=== PATIENT | female | born 1985 | race African-American/Black ===

== ENCOUNTER 2016-12-27 06:54 | Inpatient (IN) ==
--- NOTE | 2016-12-27 07:12 | PROVIDER DOCUMENTATION ---
HPI-Respiratory General - General Source: patient - History of Present Illness-Resp Quality of Pain: reports: aching Severity in ED: reports: mild Onset/Duration: reports: 2 days ago Timing: reports: still present, getting worse Exposure: reports: unknown cause Cough Quality/Degree: reports: productive cough, blood streaked sputum Current Respiratory Medication Therapy: Initiated other (lasix) Modifying Factors: improves with: coughing Associated Symptoms: reports: cough, fever/chills, flu-like symptoms, nasal congestion, nasal drainage, short of breath, wheezing Similar Symptoms Previously?: No Recently seen or treated by another doctor?: No <Niels Coy - Last Filed: 12/27/16 07:07> <Mone Rousseau - Last Filed: 12/27/16 10:26> - General Chief Complaint: Flu Symptoms Stated Complaint: VOMITING Time Seen by Provider: 12/27/16 07:07 Allergies/Adverse Reactions: Patient Allergies Allergy/AdvReac Type Severity Reaction Status Date / Time No Known Allergies Allergy Verified 05/03/16 03:19 Home Medications: Home Medication List Medication Instructions Recorded Confirmed Last Taken Type Furosemide [Lasix] 40 mg PO DIRECTED 12/27/16 12/27/16 Unknown History - History of Present Illness-Resp Nature of Presenting Problem: 2 day illness fever cough sob wheezes that clear with coughing hx post chf (Niels Coy) Review of Systems - Adult - REVIEW OF SYSTEMS - ADULT Constitutional: reports: chills, fever, night sweats Eyes: denies: discharge, blurred vision, redness Ears, Nose, Mouth & Throat: reports: epistaxis, hoarseness. denies: ear discharge, ear pain, throat pain Respiratory: reports: cough Gastrointestinal: denies: abdominal pain, constipation, diarrhea, vomiting Genitourinary: denies: dysuria, hematuria Musculoskeletal: reports: muscle aches Integumentary: reports: no symptoms reported Neurological: reports: headache/migraines Psychiatric: reports: no symptoms reported Endocrine: reports: no symptoms reported Hematologic/Lymphatic: denies: blood clots, easy bruising, low blood count Allergic/Immunologic: denies: asthma, eczema, hay fever <Niels Coy - Last Filed: 12/27/16 07:07> Past History - Adult - PAST MEDICAL HISTORY-ADULT Review of Records: reports: Nursing Assessment Review, Medications Reviewed, Social history reviewed & non-contributory. Cardiovascular: reports: CHF Respiratory: denies: asthma, COPD Gastrointestinal: reports: denies history Genitourinary: reports: denies history Musculoskeletal: reports: denies history Neurological: reports: denies history Psychiatric: reports: denies history Endocrine/Immune: reports: denies history Other Conditions: reports: denies history - PRIOR SURGERIES/PROCEDURES Surgical/Procedure History: reports: none - IMMUNIZATION STATUS Childhood Immunizations: See Nurse Assessment Flu Vaccine: See Nurse Assessment - FAMILY HISTORY Family History: reviewed, not pertinent - SOCIAL HISTORY Smoking: denies Substance Use: none/never Alcohol Use Frequency: occasionally <Niels Coy - Last Filed: 12/27/16 07:07> Physical Exam-General - PHYSICAL EXAM-ADULT Initial Vital Signs Reviewed: Yes - CONSTITUTIONAL General Appearance: no apparent distress - EYES Eyes: PERRL/EOMI, pink conjunctivae - HEAD, EARS, NOSE, MOUTH & THROAT HENMT: normocephalic/atraumatic, moist mucous membranes, normal ENT inspection, TMs normal, pharynx normal - NECK Neck: supple - RESPIRATORY Respiratory: lungs clear, no respiratory distress - CARDIOVASCULAR Cardiovascular: regular rate, rhythm - GASTROINTESTINAL (ABDOMEN) Abdominal Exam: soft - LYMPHATIC Lymphatic: no adenopathy - MUSCULOSKELETAL Back Exam: normal inspection Extremity: normal range of motion. negative: swelling - SKIN Integumentary: normal color, normal turgor - NEUROLOGIC Neurologic: grossly normal - PSYCHIATRIC Psych/Mental Status: normal mood/affect <Niels Coy - Last Filed: 12/27/16 07:07> Progress <Niels Coy - Last Filed: 12/27/16 07:07> - XRAY 1 XRAY Study: Chest Impression: Abnormal (cmg, pulm edema, and LLL pneumonia per radiologist) - CONSULTS/PCP/HOSPITALIST Notification #1 *Consult/PCP/Hospitalist*: Dr. Carr Time Discussed: 10:21 Reason/Comments: Call back with comp results <Mone Rousseau - Last Filed: 12/27/16 10:26> - PLAN OF CARE/RESULTS Progress/Plan/Lab Results: Vital Signs Temp Pulse Resp BP Pulse Ox 12/27/16 10:21 117 H 20 133/83 95 12/27/16 08:38 112 H 12/27/16 07:00 99.6 F 122 H 18 129/88 100 No Known Allergies Allergy (Verified 05/03/16 03:19) Furosemide [Lasix] 40 mg PO DIRECTED 12/27/16 Laboratory 12/27/16 12/27/16 09:01 07:05 WBC 7.38 RBC 4.27 Hgb 10.6 L Hct 33.6 L MCV 78.7 L MCH 24.8 L MCHC 31.5 L RDW Std Deviation 17.3 H Plt Count 265 MPV 9.6 Immature Gran % (Auto) 0.4 Neut % (Auto) 79.1 H Lymph % (Auto) 12.2 L R[place] % (Auto) 7.7 Eos % (Auto) 0.3 Baso % (Auto) 0.3 Immature Gran # (Auto) 0.03 Neut # (Auto) 5.84 Lymph # (Auto) 0.90 L [place] # (Auto) 0.57 Eos # (Auto) 0.02 Baso # (Auto) 0.02 Influenza A (Rapid) NEGATIVE Influenza B (Rapid) NEGATIVE Orders Category Date Time Status CHEST-2 VIEWS [RAD] Stat Exams 12/27/16 07:16 Draft CBC WITH DIFF [HEME] Stat Lab 12/27/16 09:01 Completed CK PROFILE [SP CHEM] Stat Lab 12/27/16 08:50 Received COMPREHENSIVE METABOLIC PANEL [CHEM] Stat Lab 12/27/16 08:[address] Stat Lab 12/27/16 07:05 Completed PRO B-NATRIURETIC PEPTIDE Stat Lab 12/27/16 08:50 Received TROPONIN T Stat Lab 12/27/16 08:50 Received (Mone Rousseau) Departure <Niels Coy - Last Filed: 12/27/16 07:07> - Departure Time of Disposition Order: 10:25 Certified Medical Emergency: Emergent <Mone Rousseau - Last Filed: 12/27/16 10:26> - Departure DIAGNOSIS: cardiomyopathy Left lower lobe pneumonia Qualifiers: Pneumonia type: due to unspecified organism Qualified Code(s): J18.1 - Lobar pneumonia, unspecified organism Disposition: ADMITTED INPATIENT 09 Condition: Stable Attestation - Scribe Verification/Attestation Scribe:: Mone Rousseau Acting as Scribe for:: Niels Coy Scribe documention review:: This chart was documented by a scribe and accurately reflects the service the provider performed and the decisions made by the provider. <Mone Rousseau - Last Filed: 12/27/16 10:26> Physician Attestation
[2016-12-27 09:02] LABS: MANUAL DIFF NEEDED? NO
[2016-12-27 09:08] LABS: BASO% 0.3 % (0.0-0.8); EOS# 0.02 X1000 (0.0-0.7); EOS% 0.3 % (0.0-10.0); HEMATOCRIT 33.6 % (37.0-47.0); HEMOGLOBIN 10.6 g/dL (12.0-16.0); IMM GRAN# 0.03 X1000 (0.0-0.04); IMM GRAN% 0.4 % (0.0-0.5); LYMPH% 12.2 % (20.5-51.1); MCH 24.8 PG (27-31); MCHC 31.5 g/dL (33-37); MCV 78.7 FL (81-99); MONO# 0.57 X1000 (0.11-0.59); MONO% 7.7 % (1.7-9.3); MPV 9.6 FL (7.4-10.4); NEUT% 79.1 % (42.2-75.2); PLT 265 X1000 (130-400); RBC 4.27 XMIL (4.2-5.4)
--- NOTE | 2016-12-27 10:24 | Diag Imaging Result Document ---
PROCEDURE NAME: CHEST-2 VIEWS - 12/27/2016 TWO VIEWS OF THE CHEST: FINDINGS: The heart size is enlarged. There is interstitial pulmonary edema. There is alveolar opacity present in the left lower lobe, none of which was present on 09/15/2016. IMPRESSION: Pulmonary edema. Left lower lobe pneumonia. Cardiomegaly.
[2016-12-27 11:19] LABS: AGAP 14; ALBUMIN 3.5 g/dL (3.5-5.0); ALKALINE PHOSPHATASE 111 U/L (32-104); BUN 16 mg/dL (8-22); CALCIUM 8.3 mg/dL (8.8-10.2); CHLORIDE 104 mmol/L (98-107); CK PROFILE 58 U/L (24-173); COSMO 276; GOT 46 U/L (10-30); GPT 40 U/L (10-36); POTASSIUM 4.2 mmol/L (3.5-5.1); SODIUM 138 mmol/L (136-145); TCO2 20 mmol/L (25-35); TOTAL BILIRUBIN 0.25 mg/dL (0.20-1.00); TOTAL PROTEIN 6.5 g/dL (6.3-8.3)
[2016-12-27] MEDS ORDERED: ZOFRAN IV PRN (17:34)
[2016-12-27] MEDS ORDERED: TYLENOL PO PRN (17:34)
[2016-12-27] MEDS: NS 1,000 ML IV SCH ×2 (19:28→21:04)
[2016-12-27] MEDS: ZITHROMAX PO SCH ×2 (21:02→21:04)
[2016-12-27] MEDS: LASIX PO SCH (21:02)
[2016-12-27] MEDS: NORCO-5 PO PRN (21:02)
[2016-12-27] MEDS: ROCEPHIN 1 GM/NS 50 ML IV SCH ×2 (21:03→21:04)
[2016-12-28] MEDS: PRILOSEC PO SCH ×2 (05:43→06:06)
[2016-12-28 06:02] LABS: HEMATOCRIT 33.2 % (37.0-47.0); HEMOGLOBIN 10.4 g/dL (12.0-16.0); MCH 24.5 PG (27-31); MCHC 31.3 g/dL (33-37); MCV 78.1 FL (81-99); MPV 10.2 FL (7.4-10.4); RBC 4.25 XMIL (4.2-5.4)
[2016-12-28] MEDS: NS 1,000 ML IV SCH (06:06)
[2016-12-28 06:12] LABS: AGAP 10; ALKALINE PHOSPHATASE 88 U/L (32-104); BUN 14 mg/dL (8-22); CALCIUM 8.1 mg/dL (8.8-10.2); CHLORIDE 105 mmol/L (98-107); COSMO 276; GOT 22 U/L (10-30); GPT 28 U/L (10-36); MAGNESIUM 1.7 mg/dL (1.5-2.7); POTASSIUM 3.7 mmol/L (3.5-5.1); SODIUM 138 mmol/L (136-145); TCO2 23 mmol/L (25-35); TOTAL PROTEIN 5.8 g/dL (6.3-8.3)
[2016-12-28 06:17] LABS: INR 1.18 (0.86-1.15); PROTIME 15.3 Seconds (12.1-15.5)
[2016-12-28] MEDS: ZITHROMAX PO SCH (08:27)
[2016-12-28] MEDS: LASIX PO SCH ×2 (08:27→20:41)
--- NOTE | 2016-12-28 13:27 | PROGRESS NOTE ---
DATE: 12/28/2016 SUBJECTIVE: Patient notes that she is feeling much better this morning. She is having less cough, congestion, less shortness of breath. Denies any fevers or chills. Denies any headaches, blurred vision. Denies any GI or issues. OBJECTIVE: Vital Signs: Reviewed. She had a T-max 100.1 degrees after admission last night, has been 98.8 degrees since then. She is currently afebrile, pulse 80, respiratory 22, BP is stable. General: Patient well developed, well nourished. She is in no respiratory distress. Her color looks much better than last night. She appears to be breathing easier. She is sitting up eating breakfast without any difficulty. HEENT: Normocephalic. Neck: Supple. Cardiovascular: Regular rate. Chest: Relatively clear. Improved breath sounds bilaterally. Abdomen: Soft, nondistended. Extremities: Moves all extremities. Neurologic: No changes. LABS: Reviewed. CBC unchanged. Liver functions have returned back to normal. ASSESSMENT: 1. Left lower lobe pneumonia improved. 2. Congestive heart failure with pulmonary edema. Appears to be improving although her BNP had actually elevated since yesterday's exam. 3. Acute hepatitis resolved likely secondary to her acute pulmonary congestion. 4. cardiomyopathy stable. PLAN: We will continue to follow. We will continue patient on Lasix, antibiotics. Continue to encourage to get out of bed. Hopefully home tomorrow. We will check an echo in the a.m. Further orders as needed.
--- NOTE | 2016-12-28 15:04 | HISTORY AND PHYSICAL ---
SUBJECTIVE: Patient notes she has been having increased cough, congestion, increased shortness of breath. She has been told in the past that she needed to take Lasix only when she felt short of breath. Notes it has not been helping. She has also had some fever for the past 2 days with some productive sputum with blood-tinged sputum. REVIEW OF SYSTEMS: Positive cough, productive, blood-tinged. She also notes fevers, chills, some flu-like symptoms with muscle aches, has felt tired, fatigued, short of breath with any true exertion, has some nasal congestion. Denies any focalized numbness, tingling, weakness. Denies any dysuria, frequency, urgency. Denies any hesitancy, polyuria, polydipsia. Denies constipation, melena, hematochezia. ALLERGIES: No known drug allergies. MEDICATIONS: Lasix 40 mg p.o. p.r.n. SOCIAL HISTORY: She is . She is few months . She stopped 2-3 weeks ago. Does not smoke. FAMILY HISTORY: Positive for congestive heart failure although denies any asthma or coronary artery disease. Family history noncontributory. PHYSICAL: Vital signs: Temperature 99, pulse 122, BP 129/88, saturation 100% on room air. General: The patient is well-developed, well-nourished. She is currently in no real respiratory distress. She is awake, pleasant to talk with. Speech is regular. Memory is intact. Neck: Supple. CV: Regular rate. Chest: Decreased breath sounds. Positive crackles more so on the left. Abdomen: Soft, nondistended. Extremities: Moves all extremities. Neuro: No changes. LABS: WBC 7, hemoglobin and hematocrit 10 and 32. Influenza A and B both negative. ASSESSMENT: 1. Left lower lobe pneumonia per chest x-ray. 2. cardiomyopathy. 3. Mild anemia, hemoglobin and hematocrit 10 and 33 with microcytic microchromic. 4. Elevated liver enzymes with acute hepatitis. 5. Elevated BNP secondary to pulmonary edema. CONSULTATIONS: DISPOSITION: Will admit patient to the hospital, IV antibiotics, IV Lasix. Continue to follow. Oxygen as needed. Will continue further orders.
[2016-12-28] MEDS: ROCEPHIN 1 GM/NS 50 ML IV SCH (17:52)
[2016-12-28] MEDS: NORCO-5 PO PRN (20:41)
[2016-12-29] MEDS: PRILOSEC PO SCH ×2 (05:39→06:07)
[2016-12-29] MEDS: NORCO-5 PO PRN (08:34)
[2016-12-29] MEDS: ZITHROMAX PO SCH (08:35)
[2016-12-29] MEDS: LASIX PO SCH (08:35)
[2016-12-29] MEDS ORDERED: OMNICEF PO SCH (09:00)
[2016-12-29 12:06] VITALS: BP 102/60
--- NOTE | 2016-12-30 05:18 | DISCHARGE SUMMARY ---
ADMISSION DATE: 12/27/2016 DISCHARGE DATE: 12/29/2016 DISCHARGE DIAGNOSES: 1. Left lower lobe pneumonia, resolved. 2. cardiomyopathy, stable. 3. Pulmonary edema secondary to pneumonia, improved. 4. Mild anemia. 5. Elevated liver enzymes with acute hepatitis, resolved. CONSULTATIONS: None. PROCEDURES: Echo. BRIEF HOSPITAL COURSE: Patient is a 31-year-old female who was admitted as noted in the history of present illness and treated in the usual fashion. She was placed on antibiotics and Lasix without any difficulty. On discharge, she is awake, alert, feeling much better. DISPOSITION: The patient will be discharged home. She will continue Zithromax and Omnicef for the next 5 days. She will follow up this week with her primary care physician to re-evaluate her pulmonary edema and to follow up on her echo results. TIME SPENT ON DISCHARGE: Thirty-five minutes was spent in discharge planning.
--- NOTE | 2016-12-30 14:38 | DISCHARGE SUMMARY ---
ADMISSION DATE: 12/27/2016 DISCHARGE DATE: 12/29/2016 ADDENDUM: Patient wanted to be discharged after she obtained an echocardiogram today but it was going to be a couple of hours this morning before the echocardiogram was to be done. The patient stated that she could not wait. She did not have a meter maker for her twins and so she signed out AMA. 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 All other home medications, prescriptions, and discharge summary previously applied to this discharge. Dictated by ASGE Pritchett for Vish Carr MD
== END 2016-12-29 12:30 | disposition home or self-care (01) | DRG 776 ==
LOC: P.ED 06:54 → P.MEDSURG 10:59
PROVIDERS: ATTEND Family Medicine
DX: O90.3 Peripartum cardiomyopathy (principal); K72.00 Acute and subacute hepatic failure without coma; J18.9 Pneumonia, unspecified organism; O26.63 Liver and biliary tract disorders in the puerperium; O99.53 Diseases of the respiratory system complicating the puerperium; O89.1 Cardiac complications of anesthesia during the puerperium; I50.9 Heart failure, unspecified; O90.81 Anemia of the puerperium; D64.9 Anemia, unspecified; Z79.899 Other long term (current) drug therapy
CPT/HCPCS: 36415; 71020; 80053; 81025; 82550; 83735; 83880; 84484; 85025; 85027; 85610; 87804; 94761; 99285; J0696; J7030